=== PATIENT | male | born 1955 | race Caucasian/White ===

== ENCOUNTER 2016-09-27 09:46 | Day surgery (SDC) | payer OTHER ==
[2016-09-27] VITALS (10 sets, daily range): BP systolic 105–129; BP diastolic 65–77; PULSE 60–73; RESP 6–16; O2SAT 98–100
[~2016-09-27] VITALS: Ht 182.9 cm; Wt 76.2 kg
[~2016-09-27 09:46] MED LIST: ASPI-973 PO; CeFAZolin 2 Gm/50 mL D5W IV Premix IV ONE; Lactated Ringer's 1,000 ML IV ONE; glaucoma gtts
[2016-09-27] MEDS ORDERED: Ondansetron 2 mg/mL 2 mL Inj ONE (09:47)
[2016-09-27] MEDS ORDERED: MetoCLOpramide 5 mg/mL 2 mL Inj ONE (09:47)
[2016-09-27] MEDS ORDERED: Dexamethasone 4 mg/mL Inj ONE (09:47)
[2016-09-27] MEDS ORDERED: Propofol 10,000 mCg/mL 20 mL Inj ONE (09:47)
[2016-09-27] MEDS ORDERED: fentaNYL-PF 50 mCg/mL 2 mL Inj ONE (09:47)
--- NOTE | 2016-09-27 10:36 | PCM.HPANE ---
Patient Data Surgeon Admitting Provider: Attending Provider:Nate Knowles MD Primary Care Physician:Sanchez Buck MD Other Provider:Zuly Astorgaingham Anesthesia Reason for Visit Left Inguinal Hernia Ht/WT & BMI Height (Feet): 6 Height (Inches): 0 Weight (Kilograms): 76.2 Body Mass Index 22.00 Allergies Coded Allergies: No Known Allergies (Verified Allergy, Unknown, 09/22/16) Past Anesthesia History Anesthesia History: Positive for:: Fam Anesthesia Reaction (daughter - quit breathing- reaction to anes), Denies:: Abnormal Airway, Anesthesia Reactions, Difficult Intubation, Fam Malignant Hypertherm, Malignant Hyperthermia Diabetes History Hx Diabetes?: No MRSA MRSA: No Medications Blood Thinner: Aspirin Hypertension Medication: No Home Meds Incl Beta Philomena: No Reported Medications Aspirin 81 Mg [id number] Mg PO DAILY Ref 0 09/23/16 [glaucoma gtts] No Conflict Check Daily 09/23/16 Discontinued Reported Medications Aspirin-Expunged Drug, Do Not Renew! 81 Mg Tab.[email or web address] Mg PO DAILY 08/31/12 History History of ENT Problems?: Yes HEENT History: Positive for:: Glaucoma Hearing Problem (high frequency hearing loss) Denies:: Abnormal Airway Difficult Intubation Dysphagia Sinus Problem TMJ Hx of Heart Problems?: No Cardiovascular History: Denies:: AICD Edema Heart Murmur Hypertension Irregular Heartbeat Pacemaker Hx of Respiratory Problem?: No Respiratory History: Denies:: Asthma COPD Emphysema Oxygen Administration Pneumonia Tuberculosis Use of C-PAP Machine Use of Inhalers / NEBS Hx Neurologic Problems?: No Neurological History: Denies:: CVA Headaches Multiple Sclerosis Parkinson's Disease Seizures TIA Hx of GI Problems?: Yes Gastrointestinal History: Denies:: Diverticulitis Gall Bladder Disease Gastroesphageal Reflux Gastrointestinal Bleeding Heartburn Hepatitis Hiatal Hernia Liver Disease Other GI Pertinent History: left inguinal hernia current admission problem Hx of Problems?: Yes Genitourinary History: Positive for:: Kidney Stones (prior hx stone, passed spontaneously) Denies:: Urinary Tract Infection Male Hx: Denies:: Prostate Problems Scrotal Mass Testicular Surgery Skin History: Denies:: History Skin Disorders? Pressure Ulcers Hx Musculoskeletal Problems?: Yes Musculoskeletal History: Positive for:: Osteoarthritis Denies:: Back Injury Fibromyalgia Joint Replacement Musculoskeletal Trauma (remote knee surgery in high school ) Myasthenia Gravis Systemic Lupus Hx of Psycho/Social Problems?: No Psycho Social History: Denies:: Anxiety Hx Depression Hx Surgeries?: Yes (APPY, lasik, knee repair, right shoulder lipoma) Hx Any Other Health Problems?: Yes Other History: Denies:: Cancer Endocrine Disease Hospitalization Thyroid Disease History Blood Transfusions: Positive for:: Accept Blood Products? Denies:: Blood Transfusions Hx Diabetes: No Hx Alcohol Use: YesAlcoholic Drinks Per Day: rarely one drink monthHx Substance Use: NoHave You Smoked inLast 12 mo: No Stop/Bang Treated for Sleep Apnea?: No Do You Have a CPAP Machine?: No S-Snoring: Do You Snore Loudly: No T-Tired: feel tired, fatigued: No O-Obsered: Observed not breath: No P-Blood Pressure: treated: No B- Body Mass Index > 35 kg/m2: No A- Age over 50: Yes N- Neck Large Circumference: No G- Gender Male: Yes ARVIND Total Score: 2 ARVIND Risk Assessment: Low Risk, <3 Yes Risk Assessment Category Category 1A: Patient has history of documented sleep apnea, and HAS NOT received any narcotic, sedative or anesthesia administration during this stay. Category 1B: Patient has history of documented sleep apnea, and HAS received any narcotic , sedative or anesthesia administration during this stay Category 2: Patient has SUSPECTED Obstructive Sleep Apnea, and HAS received any narcotic , sedative or anesthesia administration during this stay. Category 3: Patient has SUSPECTED Obstructive Sleep Apnea and HAS NOT received narcotic, sedative or anesthesia administration during this stay. Category 4: Outpatient in Procedural Areas with known sleep apnea or who screen positive for High Risk via the STOP/BANG questionnaire. Exam Exam Vital Signs Vital Signs Date Time Temp Pulse Resp B/P Pulse Ox O2 Delivery O2 Flow Rate FiO2 09/27/16 10:11 36.2 64 16 127/70 100 Room Air General Appearance: Oriented X3 HEENT/AIRWAY: MP 2 Lungs: Normal Air Movement Heart: Regular Rate/Rhythm Meds/Labs/Diagnostics Admission Meds Current Medications Lactated Ringer's (Lr) 1,000 ml @ 120 mls/hr [id number] ONCE IV Last administered on 09/27/16t 09:55; Start 09/27/16 at 05:00; Stop 09/27/16 at 13:19 Plan Impression Patient chart reviewed, patient interviewed and anesthestic plan with risks, benefits, and alternatives discussed, and informed consent obtained. NPO Status: [id number] CLEARS ASA Physical Status: ASA1 Normal Healthy Anesthetic Plan: GA Bene/Risks/Altern/Consents: Yes HP Complete Prior to Induction: Yes Calvin Castellon MD Sep 27, 2016 10:35
[2016-09-27] MEDS ORDERED: Bupivacaine-MPF 0.25% 30 mL Inj INFILTRATE ONE (10:55)
[2016-09-27] MEDS ORDERED: POLY17PO6 PO (11:07)
[2016-09-27] MEDS ORDERED: OXYC5TAB72 PO (11:07)
--- NOTE | 2016-09-27 12:43 | PCM.SURGPO ---
Immediate Operative Note Date of Surgery: Sep 27, 2016 Pre Operative Diagnosis Left Inguinal hernia Post Operative Diagnosis Left Indirect Inguinal hernia Procedure Open repair of Left inguinal hernia with mesh Surgeon and Code Machine Operator Surgeon: Nate Knowles MD Assistants: Campbell Jules, PAC Findings Indirect hernia Complications There were no periprocedural complications identified. Surgical Specimen Removed: No Specimen sent to Pathology: No Anesthetic Administered: GA Grafts, Implants: Implants-See Implant Record Output, Estimated Blood Loss: 5 Blood Admin during surgery: No Attending Statement Linux Systems Administrator listed in the operation was medically necessary for the successful completion of the case Nate Knowles MD Sep 27, 2016 12:43
[2016-09-27] MEDS ORDERED: Lactated Ringer's 1,000 ML IV SCH (13:21)
[2016-09-27] MEDS ORDERED: Lactated Ringer's 500 ML IV PRN (13:21)
--- NOTE | 2016-09-27 13:22 | PCM.ANEP1 ---
Post Anesthesia Phase 1 PACU Phase 1 Assessment Date of Service: Sep 27, 2016 Vital Signs Vital Signs Date Time Temp Pulse Resp B/P Pulse Ox O2 Delivery O2 Flow Rate FiO2 09/27/16 13:20 73 11 115/77 99 Room Air 09/27/16 13:15 36.7 67 11 115/76 98 Room Air 09/27/16 13:10 69 11 121/74 99 Room Air 09/27/16 13:05 63 10 115/71 100 Room Air 09/27/16 13:00 61 8 110/66 100 Simple Mask 8 09/27/16 12:55 64 6 109/65 100 Simple Mask 8 09/27/16 12:53 36.7 60 7 105/66 100 Simple Mask 8 09/27/16 10:11 36.2 64 16 127/70 100 Room Air Anesthetic Administered: GA Level of Alertness: Awake, talking Pain: No Nausea or Vomiting: No Oxygen Delivery: Room Air Lungs: Normal Air Movement Calvin Castellon MD Sep 27, 2016 13:22
--- NOTE | 2016-09-27 13:22 | PCM.ANEP2 ---
Post Anesthesia Evaluation ASA/CMS Post Anesthesia VS in Patient's Normal Range?: Yes Resp Stable; Airway Patent?: Yes CV Function & Hydration Stable: Yes Mental Status Recovered?: Yes Pain control Satisfactory?: Yes N/V Control Satisfactory?: Yes Calvin Castellon MD Sep 27, 2016 13:22
[2016-09-27] MEDS ORDERED: MetoCLOpramide 5 mg/mL 2 mL Inj IVPUSH PRN (13:25)
[2016-09-27] MEDS ORDERED: EPHEDrine Sulfate 50 mg/mL Inj IVPUSH PRN (13:25)
[2016-09-27] MEDS ORDERED: Dexamethasone 4 mg/mL Inj IVPUSH PRN (13:25)
[2016-09-27] MEDS ORDERED: fentaNYL-PF 50 mCg/mL 2 mL Inj IVPUSH PRN (13:25)
[2016-09-27] MEDS ORDERED: HYDROmorphone 1 mg/mL Inj IVPUSH PRN (13:25)
[2016-09-27] MEDS ORDERED: Ondansetron 2 mg/mL 2 mL Inj IVPUSH PRN (13:25)
[2016-09-27] MEDS ORDERED: Phenylephrine 10,000 mCg/mL Inj IVPUSH PRN (13:25)
--- NOTE | 2016-09-27 15:15 | OP ---
[address] [address] OPERATIVE REPORT PATIENT: JOSEP JOHNSON : 1955 MR#: [id number] ADMIT: 09/27/2016 JOB ID: [id number] DATE OF SURGERY: 09/27/2016 PREOPERATIVE DIAGNOSIS(ES): Left inguinal hernia. POSTOPERATIVE DIAGNOSIS(ES): Left indirect inguinal hernia. PROCEDURE PERFORMED: Open repair of left inguinal hernia with mesh. SURGEON: Nate Knowles MD. COREMAKER BENCH: 1. Campbell Jules PA-C. 2. Valeria Leahy MS3. ESTIMATED BLOOD LOSS: Minimal. COMPLICATIONS: None. INDICATIONS: The patient is a 61-year-old gentleman who noticed left groin discomfort when he was working. He eventually starting seeing an intermittent bulge which would get better when he laid down. He saw me in clinic, and after discussing the risks, benefits, and alternatives, he is here today for operative repair. PROCEDURE DETAILS: He was placed in supine position. Underwent smooth induction of general anesthesia. Left groin was prepped and draped in the usual sterile fashion. Surgical time-out was then taken using safety checklist, and all were in agreement. I began by making a groin incision along Rebeca's lines, extending to the pubic tubercle laterally, divided the skin and subcutaneous tissue sharply, exposed the external oblique aponeurosis, opened the aponeurosis, excised the inguinal nerve and then encircled the spermatic cord in a Brayan drain. Identified the inguinal floor to be intact. Opened the external spermatic fascia and identified the indirect inguinal hernia sac and dissected it free from the cord structures all the way to the deep inguinal ring. At that point, I reduced the hernia sac into the abdominal cavity and divided the cremasteric muscles and repaired the inguinal floor. Appropriately cut 3 x 6 Marlex, anchored to the shelving edge of the inguinal ligament inferiorly, the fascia over the pubic tubercle inferomedially and the rectus abdominis medially. The deep inguinal ring was recreated using leaves of the mesh. After this, the external oblique aponeurosis was reapproximated with 3-0 Vicryl running suture. Priya's was reapproximated again with 3-0 Vicryl and skin was reapproximated with 4-0 Monocryl. Steri-Strips and sterile dressing were applied. Patient was recovered from anesthesia and was taken to the recovery room in a stable condition.
[2016-09-28] MEDS ORDERED: Polyethylene Glycol (PEG) 17 Gm Powder PO SCH (08:30)
== END 2016-09-27 23:59 | disposition home or self-care (01) ==
LOC: SAS 09:46
PROVIDERS: ATTEND Student in an Organized Health Care Education/Training Program
DX: K40.90 Unilateral inguinal hernia, without obstruction or gangrene, not specified as recurrent (principal); H40.9 Unspecified glaucoma; Z87.891 Personal history of nicotine dependence
CPT/HCPCS: 49505; C1781; J0690; J1100; J2405; J2765; J7120